=== PATIENT | male | born 1975 | race Caucasian/White ===

== ENCOUNTER 2017-03-01 18:19 | Emergency (ER) | payer OTHER ==
--- NOTE | 2017-03-01 18:44 | Emergency Department Record ---
History of Present Illness - General Chief complaint: Lower Extremity Pain Stated complaint: RT LEG PAIN,SWOLLEN Time Seen by Provider: 03/01/17 18:40 Source: Patient Mode of Arrival: Ambulatory Limitations: No limitations - History of Present Illness Initial comments: 41 yo male presents to ED with a CC of right lower extremity swelling and pain following a drive from [place] 5 days ago. Patient reports pain and tightness to the calf, denies previous history of DVT, and denies fevers, chills, or recent illness. Patient does report a history of HTN, denies DM history. Patient denies SOB or chest pain symptoms. MD Complaint: Extremity pain, Extremity swelling Onset/Timin -: Days(s) Location: Right, Lower Leg History of Same: No -: Yes Myalgia Radiation: Distal Quality: Aching Consistency: Constant Improves with: Nothing Worsens with: Nothing Associated Symptoms: Denies other symptoms - Related Data Home Medications Medication Instructions Recorded Confirmed Last Taken No Home Med [NO HOME MEDS] 03/01/17 03/01/17 Unknown Allergies Allergy/AdvReac Type Severity Reaction Status Date / Time Sulfa (Sulfonamide Allergy HIVES Verified 03/01/17 18:44 Antibiotics) Review of Systems Constitutional: Denies: Chills, Fever, Malaise, Night sweats Eyes: Denies: Eye discharge, Eye pain ENT: Denies: Congestion, Ear pain, Epistaxis Respiratory: Denies: Cough, Dyspnea Cardiovascular: Reports: Edema. Denies: Chest pain, Dyspnea on exertion Endocrine: Denies: Fatigue, Heat or cold intolerance Gastrointestinal: Denies: Abdominal pain, Nausea, Vomiting Genitourinary: Denies: Incontinence, Retention Musculoskeletal: Reports: Myalgia. Denies: Arthralgia, Back pain, Gout, Joint swelling Skin: Denies: Bruising, Change in color Neurological: Denies: Abnormal gait, Confusion, Headache, Seizure Psychiatric: Denies: Anxiety Hematological/Lymphatic: Denies: Anemia, Blood Clots Physical Exam - General General Appearance: Alert, Oriented x3, Cooperative, No acute distress Limitations: No limitations - Head Head exam: Atraumatic, Normocephalic, Normal inspection Head exam detail: negative: Abrasion, Contusion, Dyson's sign, General tenderness, Hematoma, Laceration - Eye Eye exam: Normal appearance. negative: Conjunctival injection, Periorbital swelling, Periorbital tenderness, Scleral icterus - ENT Ear exam: negative: Auricular hematoma, Auricular trauma Nasal Exam: negative: Active bleeding, Discharge, Dried blood, Foreign body Mouth exam: negative: Drooling, Laceration, Muffled voice, Tongue elevation - Neck Neck exam: Normal inspection. negative: Meningismus, Tenderness - Respiratory Respiratory exam: Normal lung sounds bilaterally. negative: Respiratory distress, Rhonchi, Stridor, Wheezes - Cardiovascular Cardiovascular Exam: Regular rate, Normal rhythm, Normal heart sounds - GI/Abdominal GI/Abdominal exam: Soft. negative: Rebound, Rigid, Tenderness - Rectal Rectal exam: Deferred - exam: Deferred - Extremities Extremities exam: Calf tenderness, Pedal edema, Tenderness, Other (RLE is swollen in comparison with the left LE, calf is painful on examination.) - Back Back exam: Denies: CVA tenderness (R), CVA tenderness (L) - Neurological Neurological exam: Alert, Normal gait, Oriented X3 - Psychiatric Psychiatric exam: Normal affect, Normal mood - Skin Skin exam: Normal color. negative: Abrasion Type of lesion: negative: abrasion Course - Reevaluation(s) Reevaluation #1: 03/01/17 18:52 Case was discussed with Dr. White, will accept transfer for doppler of the LE. Patient denies CP/SOB, and appears stable for transfer by private car to [facility]. Disposition Disposition: Transfer Clinical Impression: Lower extremity edema Disposition: Acute Care Hospital Transfer Transfer To: [facility] Reason For Transfer: Doppler of the RLE Accepting Physician: Power Time Discussed w/Accepting Physician: 18:44 Condition: (2) Stable Forms: Patient Portal Access Time of Disposition: 18:44 Quality - Quality Measures Quality Measures: N/A - Blood Pressure Screening Blood Pressure Classification: Hypertensive Reading Systolic Measurement: 194 Diastolic Measurement: 136 Screening for High Blood Pressure: < First Hypertensive BP, F/U Documented > [ [id number]] First Hypertensive Follow-up Interventions: Referral to alternative/primary care provider.
== END 2017-03-01 19:13 | disposition short-term general hospital (02) ==
LOC: ER 18:19
DX: R60.0 Localized edema (principal); M79.661 Pain in right lower leg
CPT/HCPCS: 99283